=== PATIENT | female | born 1960 | race Caucasian/White ===

== ENCOUNTER 2017-05-24 08:11 | Outpatient (CLI) | payer BC | END 2017-05-24 08:12 | disposition home or self-care (01) | LOC: BICMAMMO 08:11 | PROVIDERS: ATTEND Obstetrics & Gynecology | DX: Z12.31 Encounter for screening mammogram for malignant neoplasm of breast (principal); Z80.3 Family history of malignant neoplasm of breast | CPT/HCPCS: 77063; 77067 ==

== ENCOUNTER 2021-11-14 09:24 | Outpatient (CLI) | payer BC | END 2021-11-14 09:25 | disposition home or self-care (01) | LOC: DTY/OP 09:24 | PROVIDERS: ATTEND Internal Medicine | DX: E78.5 Hyperlipidemia, unspecified (principal) | CPT/HCPCS: 97802 ==

== ENCOUNTER 2021-12-03 08:25 | Outpatient (CLI) | payer BC ==
[2021-12-03] MEDS ORDERED: Magnevist 469MG/ML 20 ML VIAL ONE (08:51)
== END 2021-12-03 08:26 | disposition home or self-care (01) ==
LOC: TBSIIMAG 08:25
PROVIDERS: ATTEND Physician Assistant Medical
DX: R94.5 Abnormal results of liver function studies (principal)
CPT/HCPCS: 74183; A9579